=== PATIENT | female | born 1940 | race African-American/Black ===

== ENCOUNTER 2021-05-01 09:59 | Emergency (ER) | payer MEDICARE ==
[~2021-05-01] VITALS: Ht 160 cm; Wt 64.2 kg
[~2021-05-01 09:59] MED LIST: DOXY100C3 PO; HYDR12.58 PO; MELO15TA23 PO; OMEP20TA8 PO; PROM118S5 PO
[2021-05-01] MEDS ORDERED: ORPHENADRINE CITRATE 60 MG/2 ML VIAL. IV ONE (10:30)
[2021-05-01] MEDS ORDERED: ACETAMINOPHEN 500 MG TABLET PO ONE (10:30)
--- NOTE | 2021-05-01 10:46 | RAD ---
EXAM: AP View of the chest DATE: 05/01/2021 10:30 AM INDICATION: Chest pain COMPARISON: 10/05/2014 FINDINGS: The heart is not enlarged. Patchy opacities medial right lung base. Aortic calcifications are seen. Calcified granuloma are seen . No pleural effusion or pneumothorax. IMPRESSION: 1. Patchy opacities medial right lung base, possibly atelectasis or developing consolidation. Electronically signed by: Titi Hargrove MD (05/01/2021 10:44 AM) CARA
--- NOTE | 2021-05-01 10:59 | EKG ---
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
--- NOTE | 2021-05-01 10:59 | EKG ---
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
[2021-05-01 11:28] LABS: CREATININE 0.8 mg/dL (0.6-1.0); GFR 83.9; POTASSIUM 3.5 mmol/L (3.5-5.1)
[2021-05-01 11:34] LABS: ALBUMIN 3.5 g/dL (3.4-5.0); ALBUMIN/GLOBULIN RATIO 0.9 (1.0-1.7); TOTAL BILIRUBIN 0.5 mg/dL (0.2-1.0); TOTAL PROTEIN 7.3 g/dL (6.4-8.2)
[2021-05-01 11:36] LABS: BASO % 0 % (0-3); EOS % 1 % (0-3); HEMATOCRIT 35.3 % (36.0-47.0); HEMOGLOBIN 11.5 g/dL (12.0-15.5); LYMPH # 1.1 x10^3/uL (1.0-4.8); LYMPH % 33 % (24-48); MEAN CORPUSCULAR HEMOGLOBIN 29 pg (25-35); MEAN CORPUSCULAR HGB CONC 33 g/dL (31-37); MEAN CORPUSCULAR VOLUME 88 fL (79-100); MONO # 0.3 x10^3/uL (0.0-1.1); MONO % 8 % (0-9); NEUT # 1.9 x10^3/uL (1.8-7.7); NEUT % 58 % (31-73); PLATELET COUNT 257 x10^3/uL (140-400); WHITE BLOOD COUNT 3.2 x10^3/uL (4.0-11.0)
[2021-05-01] MEDS ORDERED: ORPH100T PO (12:48)
[2021-05-01 14:19] VITALS: BP 160/67
== END 2021-05-01 14:54 | disposition home or self-care (01) ==
LOC: ER 09:59
DX: R07.89 Other chest pain (principal); M62.838 Other muscle spasm; J98.11 Atelectasis; F43.21 Adjustment disorder with depressed mood; I11.0 Hypertensive heart disease with heart failure; I50.9 Heart failure, unspecified; G89.29 Other chronic pain; Z88.6 Allergy status to analgesic agent
CPT/HCPCS: 36415; 71045; 80053; 82553; 84484; 85025; 93005; 96374; 99285; J2360

== ENCOUNTER 2021-08-02 15:11 | Emergency (ER) | payer MEDICARE ==
[~2021-08-02] VITALS: Ht 160 cm; Wt 65.7 kg
[~2021-08-02 15:11] MED LIST changes: +ORPH100T PO
--- NOTE | 2021-08-02 16:39 | RAD ---
EXAM: XR CHEST 1V 08/02/2021 4:18 PM CLINICAL INDICATION: Cough COMPARISON: Chest radiograph 05/01/2021 and 10/05/2014 TECHNIQUE: AP upright view of the chest FINDINGS: The heart and mediastinum are normal. Lungs are well-expanded. A calcified granuloma in t he right lung is unchanged. An opacity at the medial right lung base is unchanged from 2015. No conso lidation, pleural effusion, or pneumothorax. No acute osseous abnormality. IMPRESSION: No acute cardiopulmonary abnormality. Electronically signed by: Rina Harris MD (08/02/2021 4:36 PM) [id number]
[2021-08-02 16:56] LABS: INFLUENZA A PATIENT NEGATIVE (NEGATIVE); INFLUENZA B PATIENT NEGATIVE (NEGATIVE)
[2021-08-02 17:47] VITALS: BP 186/77
[2021-08-02] MEDS ORDERED: GUAI118L13 PO (18:34)
--- NOTE | 2021-08-02 18:36 | PHYS DOC ---
Past Medical History Past Medical History: CHF, Fibromyalgia, Hypertension Additional Past Medical Histor: chronic back pain Past Surgical History: , Hysterectomy, Other Additional Past Surgical Histo: Bilateral Cataract removal Smoking Status: Never Smoker Alcohol Use: None Drug Use: None General Adult EDM: Chief Complaint: FLU SYMPTOM HPI: HPI: Patient is a 80 year old female with history of hypertension, fibromyalgia, CHF, who presents to the ED today complaining of a cough, shortness of breath, chills, headache, symptoms for 2 days. Reports a family member being diagnosed with COVID-19. States she had a COVID-vaccine including booster last year Review of Systems: Review of Systems: Constitutional: Reports chills Eyes: Denies change in visual acuity. [] HENT: Denies nasal congestion or sore throat. [] Respiratory: Reports cough and shortness of breath. [] Cardiovascular: Denies chest pain or edema. [] GI: Denies abdominal pain, nausea, vomiting, bloody stools or diarrhea. [] : Denies dysuria. [] Musculoskeletal: Denies back pain or joint pain. [] Integument: Denies rash. [] Neurologic: Reports headache, denies focal weakness or sensory changes. [] Psychiatric: Denies depression or anxiety. [] Heart Score: C/O Chest Pain: N/A Risk Factors: Risk Factors: DM, Current or recent (<one month) smoker, HTN, HLP, family history of CAD, obesity. Risk Scores: Score 0 - 3: 2.5% MACE over next 6 weeks - Discharge Home Score 4 - 6: 20.3% MACE over next 6 weeks - Admit for Clinical Observation Score 7 - 10: 72.7% MACE over next 6 weeks - Early Invasive Strategies Allergies: Allergies: Allergies Coded Allergies Type Severity Reaction Last Updated Verified aspirin Adverse Reaction Intermediate Nausea/ vomiting 05/01/21 Yes Physical Exam: PE: Constitutional: Well developed, well nourished, no acute distress, non-toxic appearance. [] HENT: Normocephalic, atraumatic, bilateral external ears normal, oropharynx moist, no oral exudates, nose normal. [] Eyes: PERRLA, EOMI, conjunctiva normal, no discharge. [] Neck: Normal range of motion, no tenderness, supple, no stridor. [] Cardiovascular:Heart rate regular rhythm, no murmur [] Lungs & Thorax: Bilateral breath sounds clear to auscultation [] Abdomen: Bowel sounds normal, soft, no tenderness, no masses, no pulsatile masses. [] Skin: Warm, dry, no erythema, no rash. [] Back: No tenderness, no CVA tenderness. [] Extremities: No tenderness, no cyanosis, no clubbing, ROM intact, no edema. [] Neurologic: Alert and oriented X 3, normal motor function, normal sensory function, no focal deficits noted. [] Psychologic: Affect normal, judgement normal, mood normal. [] Current Patient Data: Labs: Laboratory Tests Test 08/02/21 15:53 Influenza Type A Antigen Negative (NEGATIVE) Influenza Type B Antigen Negative (NEGATIVE) SARS-CoV-2 Antigen (Rapid) Positive (NEGATIVE) *A Vital Signs: Vital Signs Date Time Temp Pulse Resp B/P (MAP) Pulse Ox O2 Delivery O2 Flow Rate FiO2 08/02/21 15:58 98.1 82 20 179/74 (109) 100 Room Air 98.1 EKG: EKG: [] Radiology/Procedures: Radiology/Procedures: []PROCEDURE: CHEST AP ONLY EXAM: XR CHEST 1V 08/02/2021 4:18 PM CLINICAL INDICATION: Cough COMPARISON: Chest radiograph 05/01/2021 and 10/05/2014 TECHNIQUE: AP upright view of the chest FINDINGS: The heart and mediastinum are normal. Lungs are well-expanded. A calcified granuloma in the right lung is unchanged. An opacity at the medial right lung base is unchanged from 2015. No consolidation, pleural effusion, or pneumothorax. No acute osseous abnormality. IMPRESSION: No acute cardiopulmonary abnormality. Electronically signed by: Rina Harris MD (08/02/2021 4:36 PM) [id number] DICTATED and SIGNED BY: RINA HARRIS MD DATE: 08/02/21 [id number] Course & Med Decision Making: Course & Med Decision Making Pertinent Labs and Imaging studies reviewed. (See chart for details) This is a 80-year-old female patient presented to the ED today with cough shortness of breath chills and a headache for 2 days. Has been exposed to COVID-19. Chest x-ray is negative, O2 sats above 99% on room air. Positive for COVID-19. Discharge to home, supportive care measures. Dragon Disclaimer: Henrique Disclaimer: This electronic medical record was generated, in whole or in part, using a voice recognition dictation system. Departure Departure Impression: Primary Impression: Lab test positive for detection of COVID-19 virus Additional Impressions: Cough Shortness of breath Headache Qualified Codes: R51.9 - Headache, unspecified Disposition: HOME / SELF CARE / HOMELESS Condition: STABLE Referrals: MARILIA BEAL MD (PCP) follow up in one week Patient Instructions: Cough, Adult, [id number], Viral Infections Additional Instructions: You are positive for COVID-19, quarantine for 5 days. Your chest x-ray is negative for any acute findings. Use the prescribed medications as ordered. Please follow-up with your doctor in the next 7 days, come back to the ED at any point symptoms worsen Scripts Guaifenesin/Codeine Phosphate (GUAIFENESIN-CODEINE SYRUP) 118 Ml Liquid 5 ML PO Q6HRS, #120 ML Prov: ANTHONY KOCH APRN 08/02/21 ANTHONY KOCH APRN Aug 02, 2021 18:36
== END 2021-08-02 18:40 | disposition home or self-care (01) ==
LOC: ER 15:11
DX: U07.1 COVID-19 (principal); I11.0 Hypertensive heart disease with heart failure; I50.9 Heart failure, unspecified; G89.29 Other chronic pain; Z88.6 Allergy status to analgesic agent
CPT/HCPCS: 71045; 87428; 99284